=== PATIENT | male | born 2000 | race Caucasian/White ===

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

== ENCOUNTER 2018-08-07 15:49 | Emergency (ER) | payer MEDICAID ==
[2018-08-07 16:10] VITALS: BP 146/76
[2018-08-07] MEDS ORDERED: Iopamidol 612 MG/ML 100 ML Bottle IVPUSH ONE (17:42)
[2018-08-07] MEDS ORDERED: Diatrizoate Meglumine/Diatrizoate Sodium 37% 120 ML Bottle PO ONE (17:42)
[2018-08-07] MEDS: Sodium Chloride 0.9% 10 ML Syringe FLUSH PRN ×2 (18:26→19:39)
--- NOTE | 2018-08-07 20:02 | CT ---
CT abdomen and pelvis Technique: Multiple axial sections were obtained from above the dome of the diaphragm inferiorly through the pubic symphysis. Intravenous and oral contrast was utilized. Comparison: No prior abdominal imaging. Findings: Small portion of the visualized lung bases show nothing acute. Liver contains no focal abnormality. Gallbladder shows no calcified gallstones. Spleen appears within normal limits. Adrenal glands show no nodule. Pancreas is within normal limits. 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 There is slightly prominent of the collecting system within the left kidney. These findings are most likely due to the slight malrotation and are most likely incidental. Right kidney is unremarkable. Aorta shows no aneurysm. No retroperitoneal adenopathy is seen. No mesenteric abnormalities are seen. Appendix is visualized and appears to be normal. No pelvic mass or adenopathy is seen. No free fluid or inflammatory change is seen. Bone window settings were reviewed which shows disc space narrowing at L5-S1 which is most likely developmental and due to transitional segment. Incidental Schmorl node deformities are seen within the lower thoracic spine. Impression: 1. Findings as described above which are believed to be incidental. 2. Nothing acute is appreciated on CT study of the abdomen and pelvis. Diagnostic code #2
--- NOTE | 2018-08-07 20:28 | EDM.PDOC ---
ED HPI GENERAL MEDICAL PROBLEM - General Chief Complaint: Abdominal Pain Stated Complaint: ABDOMINAL PAIN Time Seen by Provider: 08/07/18 16:20 Source of Information: Reports: Patient History Limitations: Reports: No Limitations - History of Present Illness INITIAL COMMENTS - FREE TEXT/NARRATIVE: 17-year-old male presents for evaluation and treatment of abdominal pain. Patient reports that he has had abdominal pain for the last 5-6 months. He states that it started with irregular bowel movements. States he has loose stools about 1-2 times a day. No blood in his stool. He reports that he has diffuse abdominal pain and cramping. He states the day before yesterday he experienced shaking and reports that the abdominal pain that brought him to his knees. He states that it was "the worst pain of his life ". States that it lasted a few minutes that he still continues to have abdominal discomfort. He denies any fevers or chills. States she is nauseous and vomited maybe twice. He still has an appetite but states he's lost about 20 pounds in the last months. He has done several things including dietary changes but continues to have abdominal pain. He denies any skin rashes or changes. He denies any joint aches or swelling. He has never been seen for this before. He does not have a primary care provider. Patient reports that he has an uncle who passed with colon cancer and sounds like he had some complex issues with his GI system. He does not know of any relatives with inflammatory bowel disease. Abdomen Pain Score (Numeric/FACES): 3 - Related Data Allergies Allergy/AdvReac Type Severity Reaction Status Date / Time No Known Allergies Allergy Verified 08/07/18 16:10 Home Meds: Home Meds . [No Known Home Meds] 08/07/18 [History] Past Medical History - Past Health History Medical/Surgical History: Denies Medical/Surgical History Social & Family History - Family History Oncologic: Reports: Colon - Tobacco Use Smoking Status *Q: Current Every Day Smoker Years of Tobacco use: 2 Packs/Tins Daily: 0.5 - Caffeine Use Caffeine Use: Reports: Energy Drinks, Soda - Recreational Drug Use Recreational Drug Use: No - Living Situation & Occupation Living situation: Reports: with Family Occupation: Student ED ROS GENERAL - Review of Systems Review Of Systems: See Below Constitutional: Reports: Malaise, Weight Loss (20 pounds in 2 months, unintentional). Denies: Fever, Chills, Decreased Appetite GI/Abdominal: Reports: Abdominal Pain, Nausea, Vomiting. Denies: Bloody Stool, Constipation, Diarrhea (Denies any diarrhea but states he's had loose stools 1- 2 times a day), Decreased Appetite, Hematochezia, Melena : Reports: No Symptoms Musculoskeletal: Denies: Joint Pain, Joint Swelling Skin: Denies: Rash ED EXAM, GI/ABD - Physical Exam Exam: See Below Exam Limited By: No Limitations General Appearance: Alert, WD/WN, No Apparent Distress Throat/Mouth: Normal Inspection, Normal Voice, No Airway Compromise Respiratory/Chest: No Respiratory Distress, Lungs Clear, Normal Breath Sounds Cardiovascular: Normal Peripheral Pulses, Regular Rate, Rhythm, No Murmur GI/Abdominal Exam: Soft, Non-Tender, No Organomegaly, No Distention, Abnormal Bowel Sounds (Hyperactive) Neurological: Alert, Oriented, Normal Cognition Psychiatric: Normal Affect, Normal Mood Skin Exam: Warm, Dry, Normal Color Course - Vital Signs Last Recorded V/S: Last Vital Signs Temp 97.9 F 08/07/18 16:05 Pulse 70 08/07/18 16:05 Resp 16 08/07/18 16:05 BP 146/76 H 08/07/18 16:05 Pulse Ox 100 08/07/18 16:05 - Orders/Labs/Meds Orders: Active Orders 24 hr Category Date Time Status Peripheral IV Care [RC] . DIRECTED Care 08/07/18 16:32 Active Peripheral IV Insertion Adult [OM.PC] Routine Oth 08/07/18 16:31 Ordered Labs: Laboratory Tests 08/07/18 08/07/18 08/07/18 Range/Units 16:25 16:25 16:25 WBC 8.00 (4.23-9.07) K/mm3 RBC 5.89 (4.63-6.08) M/mm3 Hgb 16.8 D (13.7-17.5) gm/L Hct 48.9 (40.1-51.0) % MCV 83.0 D (79.0-92.2) fl MCH 28.5 (25.7-32.2) pg MCHC 34.4 (32.2-35.5) g/dl RDW Std Deviation 39.8 (35.1-43.9) fL Plt Count 253 D (163-337) K/mm3 MPV 10.9 (9.4-12.3) fl Neutrophils % (Manual) 54 (40-60) % Band Neutrophils % 0 (0-10) % Lymphocytes % (Manual) 29 (20-40) % Atypical Lymphs % 0 % Monocytes % (Manual) 11 H (2-10) % Eosinophils % (Manual) 6 (0.8-7.0) % Basophils % (Manual) 0 L (0.2-1.2) Platelet Estimate Adequate Plt Morphology Comment Normal RBC Morph Comment Normal ESR 3 (0-15) mm/hr Sodium 143 (136-145) mEq/L Potassium 3.6 (3.5-5.1) mEq/L Chloride 102 (98-107) mEq/L Carbon Dioxide 29 (21-32) mEq/L Anion Gap 15.6 H (5-15) BUN 12 (7-18) mg/dL Creatinine 0.9 (0.7-1.3) mg/dL Est Cr Clr Drug Dosing 144.90 mL/min Estimated GFR (MDRD) > 60 (>60) mL/min BUN/Creatinine Ratio 13.3 L (14-18) Glucose 96 (74-106) mg/dL Calcium 10.0 (8.5-10.1) mg/dL Magnesium 1.9 (1.8-2.4) mg/dl Total Bilirubin 0.6 (0.2-1.0) mg/dL AST 20 (15-37) U/L ALT 22 (16-63) U/L Alkaline Phosphatase 62 (46-116) U/L C-Reactive Protein < 0.2 (<1.0) mg/dL Total Protein 8.4 H (6.4-8.2) g/dl Albumin 4.7 (3.4-5.0) g/dl Globulin 3.7 gm/dL Albumin/Globulin Ratio 1.3 (1-2) Meds: Medications Discontinued Medications Generic Name Dose Route Start Last Admin Trade Name Freq PRN Reason Stop Dose Admin Diatrizoate Meglum/Diatrizoate Sod 60 ml 08/07/18 17:42 08/07/18 19:39 Gastrografin 37% PO 08/07/18 17:43 60 ml ONETIME ONE Administration Iopamidol 100 ml 08/07/18 17:42 08/07/18 19:39 Isovue-300 (61%) IVPUSH 08/07/18 17:43 100 ml ONETIME ONE Administration Sodium Chloride 10 ml 08/07/18 16:32 08/07/18 19:39 Saline Flush FLUSH 10 ml ASDIRECTED PRN Administration Keep Vein Open - Radiology Interpretation Free Text/Narrative:: CT abdomen and pelvis Technique: Multiple axial sections were obtained from above the dome of the diaphragm inferiorly through the pubic symphysis. Intravenous and oral contrast was utilized. Comparison: No prior abdominal imaging. Findings: Small portion of the visualized lung bases show nothing acute. Liver contains no focal abnormality. Gallbladder shows no calcified gallstones. Spleen appears within normal limits. Adrenal glands show no nodule. Pancreas is within normal limits. 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 There is slightly prominent of the collecting system within the left kidney. These findings are most likely due to the slight malrotation and are most likely incidental. Right kidney is unremarkable. Aorta shows no aneurysm. No retroperitoneal adenopathy is seen. No mesenteric abnormalities are seen. Appendix is visualized and appears to be normal. No pelvic mass or adenopathy is seen. No free fluid or inflammatory change is seen. Bone window settings were reviewed which shows disc space narrowing at L5-S1 which is most likely developmental and due to transitional segment. Incidental Schmorl node deformities are seen within the lower thoracic spine. Impression: 1. Findings as described above which are believed to be incidental. 2. Nothing acute is appreciated on CT study of the abdomen and pelvis. - Re-Assessments/Exams Free Text/Narrative Re-Assessment/Exam: 08/07/18 20:18 I reviewed the labs and imaging with the patient. I'm still concerned he might something like inflammatory bowel disease. I encouraged him to follow-up with family medicine. Educated he may need an upper endoscopy and a lower endoscopy to further evaluate his problem. Today there is nothing emergent we will discharge him home. Discharge instructions as documented. Departure - Departure Time of Disposition: 20:26 Disposition: Home, Self-Care 01 Condition: Good Clinical Impression: Abdominal pain - Discharge Information *PRESCRIPTION DRUG MONITORING PROGRAM REVIEWED*: No *COPY OF PRESCRIPTION DRUG MONITORING REPORT IN PATIENT THERON: No Instructions: Abdominal Pain, Adult Referrals: PCP,None [Primary Care Provider] - Melanie Mar PA-C [Physician Call Center Support Representative] - Forms: ED Department Discharge Additional Instructions: [id number] Tylenol as needed for pain. Follow-up with family medicine. Here in [place] recommend Melanie Mar or Regina Torres. Call [phone] to schedule with one of these providers. In [place] recommend Ashli Daniel. You may need a scope such as an upper and lower endoscopy to further evaluate your pain and weight loss. Recommend a probiotic, these are available [id number]. Please return to the ER for symptoms change or worsen. - My Orders Last 24 Hours: My Active Orders 08/07/18 16:31 Peripheral IV Insertion Adult [OM.PC] Routine 08/07/18 16:32 Peripheral IV Care [RC] . DIRECTED - Assessment/Plan Last 24 Hours: My Active Orders 08/07/18 16:31 Peripheral IV Insertion Adult [OM.PC] Routine 08/07/18 16:32 Peripheral IV Care [RC] . DIRECTED
== END 2018-08-07 21:00 | disposition home or self-care (01) ==
LOC: JD.ED 15:49
DX: R10.9 Unspecified abdominal pain (principal); F17.210 Nicotine dependence, cigarettes, uncomplicated
CPT/HCPCS: 36415; 74177; 80053; 83735; 85007; 85027; 85652; 86140; 99284; Q9963; Q9967

== ENCOUNTER 2019-05-08 11:12 | Emergency (ER) | payer OTHER ==
[2019-05-08 11:22] VITALS: BP 152/88; PULSE 63
[2019-05-08] MEDS ORDERED: Sodium Chloride 0.9% 10 ML Syringe FLUSH PRN (11:48)
[2019-05-08] MEDS ORDERED: Pantoprazole 40 MG Vial IVPUSH ONE (11:49)
--- NOTE | 2019-05-08 11:55 | EDM.PDOC ---
ED HPI GENERAL MEDICAL PROBLEM - General Chief Complaint: Abdominal Pain Stated Complaint: ABDOMINAL PAIN Time Seen by Provider: 05/08/19 11:21 Source of Information: Reports: Patient History Limitations: Reports: No Limitations (Patient is a 18-year-old male who presents with complaints of generalized abdominal pain, coffee-ground emesis, and dark stools.) - History of Present Illness INITIAL COMMENTS - FREE TEXT/NARRATIVE: Patient is a 18-year-old male who presents with complaints of generalized abdominal pain, coffee-ground emesis, and dark stools. Patient states he has been having abdominal pain for approximate the last week. This morning upon waking, he had a bowel movement which he noticed was darker in color than normal. He also had emesis x1 which she described as coffee-ground in nature. He states that he has been taking omeprazole daily since the pain started about a week ago. Abdominal pain was not present at the time of exam. He reports that he has a history of ulcers, however he has never had an upper endoscopy done. He was seen in this ER approximately 9 months ago for similar abdominal pain, however there was no hematemesis or hematochezia present at that time. He states that he did not follow-up in the clinic after that visit. Abdomen Pain Score (Numeric/FACES): 8 - Related Data Allergies Allergy/AdvReac Type Severity Reaction Status Date / Time No Known Allergies Allergy Verified 05/08/19 11:21 Home Meds: Home Meds Omeprazole 40 mg PO BID #28 capsule. 05/08/19 [Rx] Past Medical History - Past Health History Medical/Surgical History: Denies Medical/Surgical History HEENT History: Reports: None Cardiovascular History: Reports: None Respiratory History: Reports: None Gastrointestinal History: Reports: Other (See Below) Other Gastrointestinal History: Stomach Ulcers Genitourinary History: Reports: None Musculoskeletal History: Reports: None Neurological History: Reports: None Psychiatric History: Reports: None Endocrine/Metabolic History: Reports: None Hematologic History: Reports: None Immunologic History: Reports: None Oncologic (Cancer) History: Reports: None Dermatologic History: Reports: None - Infectious Disease History Infectious Disease History: Reports: None Social & Family History - Family History Oncologic: Reports: Colon - Caffeine Use Caffeine Use: Reports: Soda - Recreational Drug Use Recreational Drug Use: No - Living Situation & Occupation Living situation: Reports: with Family Occupation: Student ED ROS GENERAL - Review of Systems Review Of Systems: See Below Constitutional: Reports: No Symptoms. Denies: Fever, Chills HEENT: Reports: No Symptoms Respiratory: Reports: No Symptoms Cardiovascular: Reports: No Symptoms. Denies: Dyspnea on Exertion, Lightheadedness Endocrine: Reports: No Symptoms GI/Abdominal: Reports: Abdominal Pain, Black Stool, Hematemesis : Reports: No Symptoms Musculoskeletal: Reports: No Symptoms Skin: Reports: No Symptoms Neurological: Reports: No Symptoms Psychiatric: Reports: No Symptoms Hematologic/Lymphatic: Reports: No Symptoms Immunologic: Reports: No Symptoms ED EXAM, GI/ABD - Physical Exam Exam: See Below Exam Limited By: No Limitations General Appearance: Alert, WD/WN, No Apparent Distress Respiratory/Chest: No Respiratory Distress, Lungs Clear, Normal Breath Sounds, No Accessory Muscle Use, Chest Non-Tender Cardiovascular: Normal Peripheral Pulses, Regular Rate, Rhythm, No Edema, No Gallop, No JVD, No Murmur, No Rub GI/Abdominal Exam: Normal Bowel Sounds, Soft, No Organomegaly, No Distention, No Abnormal Bruit, No Mass, Pelvis Stable, Tender (Mild epigastric) Extremities: Normal Inspection, Normal Range of Motion, Non-Tender, Normal Capillary Refill, No Pedal Edema Neurological: Alert, Oriented, CN II-XII Intact, Normal Cognition, Normal Gait, Normal Reflexes, No Motor/Sensory Deficits Psychiatric: Normal Affect, Normal Mood Skin Exam: Warm, Dry, Intact, Normal Color, No Rash Course - Vital Signs Last Recorded V/S: Last Vital Signs Temp 97.9 F 05/08/19 11:18 Pulse 63 05/08/19 11:18 Resp 16 05/08/19 11:18 BP 152/88 H 05/08/19 11:18 Pulse Ox 100 05/08/19 11:18 - Orders/Labs/Meds Orders: Active Orders 24 hr Category Date Time Status Peripheral IV Care [RC] . DIRECTED Care 05/08/19 11:48 Active Sodium Chloride 0.9% [Normal Saline] 1,000 ml Med 05/08/19 12:00 Active IV ASDIRECTED Sodium Chloride 0.9% [Saline Flush] Med 05/08/19 11:48 Active 10 ml FLUSH ASDIRECTED PRN Peripheral IV Insertion Adult [OM.PC] Stat Oth 05/08/19 11:47 Ordered Medication Orders Sodium Chloride (Normal Saline) 1,000 mls @ 150 mls/hr IV ASDIRECTED ARMIN Last Admin: 05/08/19 11:59 Dose: 150 mls/hr Sodium Chloride (Saline Flush) 10 ml FLUSH ASDIRECTED PRN PRN Reason: Keep Vein Open Last Admin: 05/08/19 11:59 Dose: 10 ml Labs: Laboratory Tests 05/08/19 05/08/19 Range/Units 11:55 11:55 WBC 5.29 (4.23-9.07) K/mm3 RBC 5.34 (4.63-6.08) M/mm3 Hgb 15.2 D (13.7-17.5) gm/dl Hct 45.7 (40.1-51.0) % MCV 85.6 (79.0-92.2) fl MCH 28.5 (25.7-32.2) pg MCHC 33.3 (32.2-35.5) g/dl RDW Std Deviation 40.2 (35.1-43.9) fL Plt Count 206 (163-337) K/mm3 MPV 10.4 (9.4-12.3) fl Neut % (Auto) 55.6 (34.0-67.9) % Lymph % (Auto) 27.6 (21.8-53.1) % [place] % (Auto) 8.1 (5.3-12.2) % Eos % (Auto) 7.9 H (0.8-7.0) Baso % (Auto) 0.4 (0.1-1.2) % Neut # (Auto) 2.94 (1.78-5.38) K/mm3 Lymph # (Auto) 1.46 (1.32-3.57) K/mm3 [place] # (Auto) 0.43 (0.30-0.82) K/mm3 Eos # (Auto) 0.42 (0.04-0.54) K/mm3 Baso # (Auto) 0.02 (0.01-0.08) K/mm3 Sodium 143 (136-145) mEq/L Potassium 4.5 (3.5-5.1) mEq/L Chloride 105 (98-107) mEq/L Carbon Dioxide 30 (21-32) mEq/L Anion Gap 12.5 (5-15) BUN 12 (7-18) mg/dL Creatinine 1.0 (0.7-1.3) mg/dL Est Cr Clr Drug Dosing 129.33 mL/min Estimated GFR (MDRD) > 60 (>60) mL/min BUN/Creatinine Ratio 12.0 L (14-18) Glucose 55 L (74-106) mg/dL Calcium 9.2 (8.5-10.1) mg/dL Total Bilirubin 0.5 (0.2-1.0) mg/dL AST 18 (15-37) U/L ALT 29 (16-63) U/L Alkaline Phosphatase 63 (46-116) U/L Total Protein 7.2 (6.4-8.2) g/dl Albumin 4.0 (3.4-5.0) g/dl Globulin 3.2 gm/dL Albumin/Globulin Ratio 1.3 (1-2) Lipase 84 (73-393) U/L Meds: Medications Generic Name Dose Route Start Last Admin Trade Name Freq PRN Reason Stop Dose Admin Sodium Chloride 1,000 mls @ 150 mls/hr 05/08/19 12:00 05/08/19 11:59 Normal Saline IV 150 mls/hr ASDIRECTED ARMIN Administration Sodium Chloride 10 ml 05/08/19 11:48 05/08/19 11:59 Saline Flush FLUSH 10 ml ASDIRECTED PRN Administration Keep Vein Open Discontinued Medications Generic Name Dose Route Start Last Admin Trade Name Freq PRN Reason Stop Dose Admin Pantoprazole Sodium 80 mg 05/08/19 11:49 05/08/19 11:59 Protonix Iv IVPUSH 05/08/19 11:50 80 mg BOLUS ONE Administration - Re-Assessments/Exams Free Text/Narrative Re-Assessment/Exam: 05/08/19 12:33 Patient's hematology was grossly unremarkable. Hemoglobin was normal. He has had no further abdominal pain, nausea, or vomiting while in the ER. Patient verbalizes it is not drink alcohol or use NSAIDs. Recommend a bland diet. We will discharge him home with prescription for Protonix 40 mg twice daily. Recommended he follow-up with Dr. Mccallum, general surgeon, for consult. Discharge instructions as documented. Departure - Departure Time of Disposition: 12:34 Disposition: Home, Self-Care 01 Condition: Fair Clinical Impression: Gastritis Qualifiers: Gastritis type: unspecified gastritis Chronicity: acute Gastritis bleeding: with bleeding Qualified Code(s): K29.01 - Acute gastritis with bleeding - Discharge Information *PRESCRIPTION DRUG MONITORING PROGRAM REVIEWED*: No *COPY OF PRESCRIPTION DRUG MONITORING REPORT IN PATIENT THERON: No Prescriptions: Omeprazole 40 mg PO BID #28 capsule.dr Instructions: Gastritis, Adult, [id number] Referrals: PCP,None [Primary Care Provider] - Lester Mccallum MD [Physician] - Forms: ED Department Discharge Additional Instructions: You were seen in the emergency department today for abdominal pain for the last week, as well as an episode of dark stool and dark emesis this morning. Blood work was done and found to be normal. You received IV Protonix which is an acid suppressor while in the ER. You have been prescribed omeprazole 40 mg twice daily. Take this medication as prescribed until you follow-up with Dr. Mccallum in the clinic. The number to schedule an appointment with Dr. Mccallum is listed below. Avoid spicy or acidic foods. Do not use NSAIDs or consume alcohol. Return to ER if you experience any worsening symptoms. Sepsis Event Note - Evaluation Sepsis Screening Result: No Definite Risk - Focused Exam Vital Signs: Vital Signs Temp Pulse Resp BP Pulse Ox 05/08/19 11:18 97.9 F 63 16 152/88 H 100 Date Exam was Performed: 05/08/19 Time Exam was Performed: 12:29 - My Orders Last 24 Hours: My Active Orders 05/08/19 11:47 Peripheral IV Insertion Adult [OM.PC] Stat 05/08/19 11:48 Peripheral IV Care [RC] . DIRECTED Sodium Chloride 0.9% [Saline Flush] 10 ml FLUSH ASDIRECTED PRN 05/08/19 12:00 Sodium Chloride 0.9% [Normal Saline] 1,000 ml IV ASDIRECTED - Assessment/Plan Last 24 Hours: My Active Orders 05/08/19 11:47 Peripheral IV Insertion Adult [OM.PC] Stat 05/08/19 11:48 Peripheral IV Care [RC] . DIRECTED Sodium Chloride 0.9% [Saline Flush] 10 ml FLUSH ASDIRECTED PRN 05/08/19 12:00 Sodium Chloride 0.9% [Normal Saline] 1,000 ml IV ASDIRECTED
[2019-05-08] MEDS ORDERED: Sodium Chloride 0.9% 1,000 ML IV SCH (12:00)
== END 2019-05-08 12:46 | disposition home or self-care (01) ==
LOC: JD.ED 11:12
DX: K29.01 Acute gastritis with bleeding (principal)
CPT/HCPCS: 36415; 80053; 83690; 85025; 96361; 96374; 99284; C9113; J7030

== ENCOUNTER 2021-03-03 13:33 | Emergency (ER) | payer SELFPAY ==
[2021-03-03 13:46] VITALS: BP 167/87; PULSE 88
== END 2021-03-03 16:18 | disposition home or self-care (01) ==
LOC: JD.ED 13:33
DX: N50.82 Scrotal pain (principal); Z72.0 Tobacco use
CPT/HCPCS: 76870; 76870-26; 93975; 99284-25

== ENCOUNTER 2023-10-07 11:27 | Emergency (ER) | payer SELFPAY ==
[2023-10-07 13:27] LABS: BASOPHILS PERCENT AUTO 0.3 % (0.0-1.0); EOSINOPHILS ABSOLUTE AUTO 0.2 K/mm3 (0.0-0.4); EOSINOPHILS PERCENT AUTO 1.8 % (0.0-6.0); HEMATOCRIT 46.5 % (42.0-52.0); HEMOGLOBIN 16.7 gm/dl (14.0-18.0); IMMATURE GRAN ABSOLUTE AUTO 0.07 K/mm3 (0.00-0.05); IMMATURE GRAN PERCENT AUTO 0.6 % (0.0-0.4); LYMPHOCYTES ABSOLUTE AUTO 1.1 K/mm3 (1.0-4.8); LYMPHOCYTES PERCENT AUTO 9.7 % (24.0-44.0); MEAN CORPUSCULAR HEMOGLOBIN 30.8 pg (28.0-32.0); MEAN CORPUSCULAR HGB CONC 35.9 g/dl (32.0-36.0); MEAN CORPUSCULAR VOLUME 85.6 fl (83.0-99.0); MEAN PLATELET VOLUME 10.1 fl (9.4-12.4); MONOCYTES ABSOLUTE AUTO 0.8 K/mm3 (0.0-0.8); MONOCYTES PERCENT AUTO 6.8 % (0.0-8.0); NEUTROPHILS PERCENT AUTO 80.8 % (41.0-71.0); PLATELET COUNT,PLT 234 K/mm3 (150-400); RED BLOOD CELL COUNT 5.43 M/mm3 (4.52-5.90); WHITE BLOOD CELL COUNT,WBC 11.18 K/mm3 (3.9-11.3)
[2023-10-07] MEDS: Iopamidol 612 MG/ML 100 ML Bottle IVPUSH ONE (13:27)
[2023-10-07 13:47] LABS: INR 1.01; PROTHROMBIN TIME 10.7 SECONDS (9.7-12.0)
[2023-10-07 13:49] LABS: PTT,PARTIAL THROMBOPLSTIN TIME 25.7 SECONDS (21.7-31.4)
[2023-10-07 13:54] LABS: A/G RATIO 1.4 (1-2); ALBUMIN 4.5 g/dl (3.4-5.0); ANION GAP 13.8 (5-15); BILIRUBIN TOTAL 0.7 mg/dL (0.2-1.0); CALCIUM 9.4 mg/dL (8.5-10.1); EST CRCL DRUG DOSING (CG) 121.32 mL/min; LACTIC ACID 0.8 mmol/L (0.4-2.0); MAGNESIUM 1.6 mg/dL (1.8-2.4); POTASSIUM,K 3.8 mEq/L (3.5-5.1); PROTEIN TOTAL,TP 7.7 g/dl (6.4-8.2)
[2023-10-07] MEDS: Sodium Chloride 0.9% 1,000 ML IV ONE (13:56)
[2023-10-07] MEDS: Sodium Chloride 0.9% 10 ML Syringe FLUSH PRN (13:58)
[2023-10-07] MEDS: Morphine 2 MG/ML SYRINGE IVPUSH ONE (14:20)
[2023-10-07 15:26] LABS: APPEARANCE,URINE CLEAR (Clear); BILIRUBIN,URINE NEGATIVE (Negative); COLOR,URINE YELLOW (Yellow); GLUCOSE,URINE NEGATIVE (Negative); KETONES,URINE 1+ (Negative); LEUKOCYTE ESTERASE,URINE NEGATIVE (Negative); NITRITE,URINE NEGATIVE (Negative); OCCULT BLOOD,URINE 1+ (Negative); PH,URINE 6.5 (5.0-8.0); PROTEIN,URINE 1+ (Negative); UROBILINOGEN,URINE 0.2 (0.2-1.0)
[2023-10-07 15:35] LABS: BACTERIA,URINE OCCASIONAL /hpf (FEW); BARBITURATE SCREEN,URINE NEGATIVE (CUTOFF=200); BENZODIAZEPINES SCREEN,URINE NEGATIVE (CUTOFF=150); BUPRENORPHINE SCREEN,URINE NEGATIVE (CUTOFF=10); METHADONE SCREEN, URINE NEGATIVE (CUT0FF=200); METHAMPHETAMINES SCREEN, URINE NEGATIVE (CUTOFF=500); MUCUS,URINE NOT SEEN /hpf (FEW); OXYCODONE SCREEN,URINE NEGATIVE (CUT0FF=100); RBC,URINE 30-40 /hpf (0-5); SQUAMOUS EPITHELIAL CELLS,UR 0-5 /hpf (0-5); THC SCREEN,URINE 20 NG/ML PRESUMPTIVE POSITIVE (CUTOFF=50); WBC,URINE 0-5 /hpf (0-5)
[2023-10-07 15:36] LABS: AMPHETAMINES SCREEN, URINE NEGATIVE (CUTOFF=500)
[2023-10-07] MEDS ORDERED: Magnesium Sulfate (4.06 MEQ/ML) 5 GM/10 ML SDV IV ONE (16:00)
[2023-10-07] MEDS: Magnesium Oxide 400 MG Tab PO ONE (18:00)
[2023-10-07 20:30] VITALS: BP 152/98; PULSE 82
== END 2023-10-07 18:00 | disposition home or self-care (01) ==
LOC: JD.ED 11:27
DX: R10.30 Lower abdominal pain, unspecified (principal); R19.7 Diarrhea, unspecified; R11.0 Nausea; F17.210 Nicotine dependence, cigarettes, uncomplicated; Z79.899 Other long term (current) drug therapy
CPT/HCPCS: 36415; 71260; 71260-26; 74177; 74177-26; 76870; 76870-26; 80053; 80306; 81001; 82272; 83605; 83690; 83735; 84484; 85025; 85610; 85730; 93005; 93975; 96361; 96374; 99284; 99284-25; A9270-GY; J2270; J3490; J7030; Q9967